=== PATIENT | male | born 1990 | race Caucasian/White ===

== ENCOUNTER 2017-01-09 10:30 | Emergency (ER) | payer SELFPAY ==
[~2017-01-09] VITALS: Ht 167.6 cm; Wt 65.0 kg
[~2017-01-09 10:30] MED LIST: ONDA1TAB16 PO
[2017-01-09 10:32] VITALS: BP 150/67; PULSE 65; RESP 16; TEMP 98.9; O2SAT 99
[2017-01-09] MEDS ORDERED: SODIUM CHLOR 0.9% 1000 ML INJ 1,000 ML IV SCH (10:57)
[2017-01-09] MEDS ORDERED: SODIUM CHLORIDE 0.9% FLUSH 10 ML FLUSH IV FLUSH PRN (11:00)
[2017-01-09] MEDS ORDERED: KETOROLAC TROMETHAMINE 30 MG/ML (IVP) VIAL IVP ONE (11:00)
[2017-01-09] MEDS ORDERED: ONDANSETRON HCL 4 MG/2 ML VIAL IVP ONE (11:00)
--- NOTE | 2017-01-09 11:00 | PD ---
HPI Chief Complaint: Cold / Flu Symptoms Time Seen by Provider: 10:52 Travel History International Travel<30 days: No Contact w/Intl Traveler<30days: No Traveled to known affect area: No History of Present Illness HPI 26-year-old male here with complaint of flulike symptoms. Patient states that 3 days ago he ate [employer]. He woke up in the middle night with nausea, vomiting and diarrhea. The diarrhea is of lesser symptoms but the nausea and vomiting have been fairly prominent he's had difficulty keeping much food down since. He also notes a sore throat, body aches, subjective fevers, chills and a slight headache. Patient is concern for dehydration. No hematemesis or hematochezia. PFSH Past Medical History ADHD: Yes Diminished Hearing: No Past Surgical History Other Surgery: Yes (plastic reconstruction to face age 1 ) Social History Alcohol Use: Yes Tobacco Use: No Substance Use: No (hx marijuana) Allergies-Medications (Allergen,Severity, Reaction): Coded Allergies: Keflex (Verified Allergy, Severe, 01/09/17) Reported Meds & Prescriptions Reported Meds & Active Scripts Active No Active Prescriptions or Reported Medications Review of Systems Except as stated in HPI: all other systems reviewed are Neg Physical Exam Narrative GENERAL: Well-appearing male in no acute distress SKIN: Focused skin assessment warm/dry. HEAD: Atraumatic. Normocephalic. EYES: Pupils equal and round. He millimeters. No scleral icterus. No injection or drainage. ENT: No nasal bleeding or discharge. Mucous membranes pink and moist. TMs clear bilaterally. Minimal posterior pharyngeal erythema but no swelling, exudate or palatal petechiae NECK: Supple without nuchal rigidity CARDIOVASCULAR: Regular rate and rhythm. No murmur appreciated. RESPIRATORY: No accessory muscle use. Clear to auscultation. Breath sounds equal bilaterally. GASTROINTESTINAL: Abdomen soft, mild diffuse tenderness to palpation without rebound or guarding MUSCULOSKELETAL: Moves all extremity's normally, normal gait NEUROLOGICAL: Awake and alert. No obvious cranial nerve deficits. Motor grossly within normal limits. Normal speech. PSYCHIATRIC: Appropriate mood and affect; insight and judgment normal. Data Data Last Documented VS Vital Signs Date Time Temp Pulse Resp B/P Pulse Ox O2 Delivery O2 Flow Rate FiO2 01/09/17 11:58 61 20 104/50 98 Room Air 01/09/17 10:32 98.9 Orders Complete Blood Count With Diff (6/30/17 10:57) Comprehensive Metabolic Panel (01/09/17 10:57) Lipase (01/09/17 10:57) Iv Access Insert/Monitor (01/09/17 10:57) Oximetry (01/09/17 10:57) Ondansetron Inj (Zofran Inj) (01/09/17 11:00) Sodium Chlor 0.9% 1000 Ml Inj (Ns 1000 M (01/09/17 10:57) Sodium Chloride 0.9% Flush (Ns Flush) (01/09/17 11:00) Ketorolac Inj (Toradol Inj) (01/09/17 11:00) Labs Laboratory Tests Test 01/09/17 11:10 White Blood Count 12.0 TH/MM3 Red Blood Count 5.34 MIL/MM3 Hemoglobin 15.3 GM/DL Hematocrit 44.4 % Mean Corpuscular Volume 83.2 FL Mean Corpuscular Hemoglobin 28.7 PG Mean Corpuscular Hemoglobin 34.5 % Concent Red Cell Distribution Width 12.6 % Platelet Count 258 TH/MM3 Mean Platelet Volume 7.9 FL Neutrophils (%) (Auto) 91.6 % Lymphocytes (%) (Auto) 2.7 % Monocytes (%) (Auto) 3.2 % Eosinophils (%) (Auto) 2.2 % Basophils (%) (Auto) 0.3 % Neutrophils # (Auto) 11.0 TH/MM3 Lymphocytes # (Auto) 0.3 TH/MM3 Monocytes # (Auto) 0.4 TH/MM3 Eosinophils # (Auto) 0.3 TH/MM3 Basophils # (Auto) 0.0 TH/MM3 CBC Comment DIFF FINAL Differential Comment Sodium Level 135 MEQ/L Potassium Level 4.0 MEQ/L Chloride Level 102 MEQ/L Carbon Dioxide Level 26.3 MEQ/L Anion Gap 7 MEQ/L Blood Urea Nitrogen 15 MG/DL Creatinine 1.26 MG/DL Estimat Glomerular Filtration 68 ML/MIN Rate Random Glucose 119 MG/DL Calcium Level 9.0 MG/DL Total Bilirubin 1.6 MG/DL Aspartate Amino Transf 21 U/L (AST/SGOT) Alanine Aminotransferase 23 U/L (ALT/SGPT) Alkaline Phosphatase 82 U/L Total Protein 7.3 GM/DL Albumin 4.0 GM/DL Lipase 76 U/L [facility] Medical Decision Making Medical Screen Exam Complete: Yes Emergency Medical Condition: Yes Medical Record Reviewed: Yes Differential Diagnosis 26-year-old male with 3 days of nausea vomiting and diarrhea after eating fast food, some subjective fevers and chills and body aches as well. Patient is well -appearing and afebrile. Suspect food poisoning versus gastroenteritis, concern for concurrent dehydration or electrolyte abnormality. My suspicion for peritoneal pathology, pharyngitis, meningitis is exceedingly low. Narrative Course Patient placed on monitor, IV established and blood obtained. Given 1 L normal saline bolus, 4 mg Zofran, 30 g Toradol. CBC, CMP, lipase unremarkable. Patient felt improved and will be discharged home with antiemetics as needed. Diagnosis Primary Impression: Gastroenteritis Referrals: [facility] as needed This is a clinic who sees patients without health insurance, follow-up as needed Additional Instructions: Phenergan as needed for nausea, vomiting. Med/Other Pt SpecificInfo: Prescription(s) given Scripts Promethazine (Phenergan)25 Mg [id number] Mg PO Q6H PRN (NAUSEA OR VOMITING) #10 TAB Ref 0 Prov:Stephanie Jorgensen MD 01/09/17 Disposition: 01 DISCHARGE HOME Condition: Stable Stephanie Jorgensen MD Jan 09, 2017 11:00
[2017-01-09 11:27] LABS: BASOPHIL % 0.3 % (0.0-2.0); EOSINOPHIL # 0.3 TH/MM3 (0-0.4); EOSINOPHIL % 2.2 % (0.0-4.0); HEMATOCRIT 44.4 % (39.0-51.0); HEMO FLAGS DIFF FINAL; LYMPH % 2.7 % (9.0-44.0); LYMPHOCYTE # 0.3 TH/MM3 (1.0-4.8); MEAN CELL VOLUME 83.2 FL (80.0-100.0); MEAN CORPUSCULAR HEMOGLOBIN 28.7 PG (27.0-34.0); MEAN CORPUSCULAR HGB CONC 34.5 % (32.0-36.0); MONO % 3.2 % (0.0-8.0); NEUT % 91.6 % (16.0-70.0); PLATELET COUNT 258 TH/MM3 (150-450); RED BLOOD COUNT 5.34 MIL/MM3 (4.50-5.90); RED CELL DISTRIBUTION WIDTH 12.6 % (11.6-17.2)
[2017-01-09 11:57] LABS: ANION GAP 7 MEQ/L (5-15); AST (GOT) 21 U/L (15-37); BICARBONATE 26.3 MEQ/L (21.0-32.0); BLOOD UREA NITROGEN 15 MG/DL (7-18); CHLORIDE 102 MEQ/L (98-107); GLOMERULAR FILTRATION RATE 68 ML/MIN (>89); SODIUM (NA) 135 MEQ/L (136-145)
[2017-01-09 11:58] VITALS: BP 104/50; PULSE 61; RESP 20; O2SAT 98
[2017-01-09 11:58] LABS: ALT (GPT) 23 U/L (12-78)
[2017-01-09 12:01] LABS: ALKALINE PHOSPHATASE 82 U/L (45-117); TOTAL BILIRUBIN ADULT 1.6 MG/DL (0.2-1.0)
[2017-01-09] MEDS ORDERED: PROM25TA10 PO (12:04)
== END 2017-01-09 12:44 | disposition home or self-care (01) ==
LOC: NEPD 10:30
DX: K52.9 Noninfective gastroenteritis and colitis, unspecified (principal); R51 Headache
CPT/HCPCS: 80053; 83690; 85025; 96374; 96375; 99284; J1885; J2405; J7030